=== PATIENT | male | born 1960 | race Caucasian/White ===

== ENCOUNTER 2021-04-20 17:47 | Emergency (ER) | payer BC ==
[~2021-04-20] VITALS: Ht 172.7 cm; Wt 86.3 kg
[2021-04-20 18:49] VITALS: BP 145/102
[2021-04-20] MEDS ORDERED: ULTRAM50 M1 PO (21:06)
[2021-04-20] MEDS ORDERED: KEFLEX500 MG PO (21:31)
== END 2021-04-20 21:40 | disposition home or self-care (01) | DRG 605 ==
LOC: ED 17:47
PROC: 0H9KXZZ Drainage of Right Lower Leg Skin, External Approach (ICD-10-PCS; principal; 2021-04-20)
DX: S80.01XA Contusion of right knee, initial encounter (principal); X58.XXXA Exposure to other specified factors, initial encounter

== ENCOUNTER 2022-03-16 04:45 | Emergency (ER) | payer BC ==
[~2022-03-16] VITALS: Ht 170.2 cm; Wt 90.0 kg
[~2022-03-16 04:45] MED LIST: KEFLEX500 MG PO; ULTRAM50 M1 PO
[2022-03-16 04:55] VITALS: BP 155/98
[2022-03-16 05:00] VITALS: BP 146/87
[2022-03-16] MEDS ORDERED: PRILOSEC20 MG/CAP PO (05:03)
[2022-03-16 05:30] VITALS: BP 138/81
[2022-03-16 05:48] LABS: HEMATOCRIT 47.5 % (39.0-50.0); HEMOGLOBIN 15.8 g/dl (14.0-18.0); IMMATURE GRANULOCYTES 0.4 % (0.0-5.0); MEAN CELL VOLUME 87.8 fL CALC (80.0-100.0); MEAN CORPUSCULAR HGB 29.2 pG CALC (26.0-32.0); MEAN CORPUSCULAR HGB CONC 33.3 g/dL CAL (32.0-36.0); NEUT# 6.96 thou/uL (1.82-7.42); RED BLOOD COUNT 5.41 mill/uL (4.70-6.10); RED CELL DISTRI WIDTH 13.2 % (11.5-15.5)
[2022-03-16 05:49] LABS: URINE BILIRUBIN - DIPSTICK NEGATIVE (NEGATIVE); URINE BLOOD DIPSTICK MODERATE (NEGATIVE); URINE COLOR YELLOW; URINE GLUCOSE - DIPSTICK NEGATIVE (NEGATIVE); URINE KETONE NEGATIVE (NEGATIVE); URINE LEUK ESTERASE NEGATIVE (NEGATIVE); URINE PH 6.5 (4.5-8.0); URINE PROTEIN - DIPSTICK NEGATIVE (NEG-TRACE); URINE SPECIFIC GRAVITY 1.015; URINE UROBILINOGEN - DIPSTICK 0.2 E.U./dL (0.2)
[2022-03-16 06:00] LABS: URINE NITRITE - DIPSTICK NEGATIVE (Negative)
[2022-03-16 06:03] LABS: ALBUMIN 4.1 g/dL (3.2-5.0); ALKALINE PHOSPHATASE 104 u/l (38-126); ANION GAP 12 (6-22 (CALC)); BILIRUBIN, TOTAL 0.5 mg/dL (0.0-1.4); BUN 14 mg/dL (8-23); BUN/CREATININE RATIO 16 (12-20 (CALC)); CARBON DIOXIDE 27 mmol/l (22-30); CHLORIDE 108 mmol/l (95-108); CREATININE 0.9 mg/dL (0.7-1.3); GFR FOR AFR.AMER. > 60 ML/MIN (>=60 (CALC)); GFR OTHER RACES > 60 ML/MIN (>=60 (CALC)); POTASSIUM 4.2 mmol/l (3.5-5.1); SGOT/AST 37 u/l (19-48); SODIUM 144 mmol/l (137-146); TOTAL PROTEIN 6.7 g/dL (6.3-8.2)
[2022-03-16 06:09] LABS: URINE SQUAMOUS EPITHELIAL CELL FEW EPI/hpf (0-FEW)
[2022-03-16] MEDS ORDERED: IBUPROFEN600 MG PO (06:40)
[2022-03-16] MEDS ORDERED: TAMSULOSIN0.4 MG PO (06:40)
[2022-03-16 07:01] VITALS: BP 136/74
== END 2022-03-16 07:09 | disposition home or self-care (01) | DRG 694 ==
LOC: ED 04:45
PROVIDERS: Emergency Medicine
DX: N20.1 Calculus of ureter (principal)